=== PATIENT | male | born 1965 | race Caucasian/White ===

== ENCOUNTER → 2021-10-05 13:28 | Outpatient (BNVA) | payer OTHER, SELFPAY | PROVIDERS: Visit Provider Physician Assistant Medical | DX: M25.562 Pain in left knee (principal); M25.462 Effusion, left knee | CPT/HCPCS: 73564; 99203 ==

== ENCOUNTER → 2021-10-08 08:04 | Outpatient (BNVA) | payer OTHER, SELFPAY | PROVIDERS: Visit Provider Internal Medicine | DX: M23.92 Unspecified internal derangement of left knee (principal); M25.462 Effusion, left knee | CPT/HCPCS: 99213 ==

== ENCOUNTER → 2021-10-15 12:53 | Outpatient (BNVA) | payer OTHER, SELFPAY | PROVIDERS: Visit Provider Internal Medicine | DX: M25.462 Effusion, left knee (principal); M23.92 Unspecified internal derangement of left knee | CPT/HCPCS: 99213 ==

== ENCOUNTER 2021-11-04 06:52 | Outpatient (REF) | payer OTHER, SELFPAY ==
--- NOTE | ~2021-11-04 | XR_ITS ---
EXAMINATION: XR STANDING AP KNEES XR KNEE, LEFT CLINICAL INFORMATION: Knee pain. COMPARISON: Radiographs left knee 10/05/2021 TECHNIQUE: Standing AP view of both knees is performed along with lateral and axial patella views of the left knee. FINDINGS: Left: Normal bony mineralization. There is prominent narrowing medial knee joint compartment with marginal osteophytes and secondary genu varus. No erosive change. There is small to moderate suprapatellar effusion. Hoffa's fat pad appears normal. Axial view patella shows no lateralization or tilting. Suspect chondrocalcinosis retropatellar cartilage mid and medial side patella. Right: Normal bony mineralization. There is narrowing medial knee joint compartment with osteophytes from the femoral condyle and tibial plateau and secondary genu varus. There is no erosive change or chondrocalcinosis. 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 -Small to moderate suprapatellar effusion. -Probable chondrocalcinosis retropatellar cartilage. No erosive change. Right: -Osteoarthritis medial compartment of lesser severity. Secondary genu varus.
--- NOTE | ~2021-11-04 | XR_ITS ---
EXAMINATION: XR STANDING AP KNEES XR KNEE, LEFT CLINICAL INFORMATION: Knee pain. COMPARISON: Radiographs left knee 10/05/2021 TECHNIQUE: Standing AP view of both knees is performed along with lateral and axial patella views of the left knee. FINDINGS: Left: Normal bony mineralization. There is prominent narrowing medial knee joint compartment with marginal osteophytes and secondary genu varus. No erosive change. There is small to moderate suprapatellar effusion. Hoffa's fat pad appears normal. Axial view patella shows no lateralization or tilting. Suspect chondrocalcinosis retropatellar cartilage mid and medial side patella. Right: Normal bony mineralization. There is narrowing medial knee joint compartment with osteophytes from the femoral condyle and tibial plateau and secondary genu varus. There is no erosive change or chondrocalcinosis. 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 -Small to moderate suprapatellar effusion. -Probable chondrocalcinosis retropatellar cartilage. No erosive change. Right: -Osteoarthritis medial compartment of lesser severity. Secondary genu varus.
== END 2021-11-04 06:53 | disposition home or self-care (01) ==
LOC: HO.HOSX 06:52
PROVIDERS: Visit Provider Physician Assistant
DX: M17.12 Unilateral primary osteoarthritis, left knee (principal)
CPT/HCPCS: 20610; 73560; 73565; 99202; J1040

== ENCOUNTER 2023-03-17 08:46 | Outpatient (AMB) | payer OTHER, SELFPAY ==
--- NOTE | 2023-03-17 09:22 | AM.OFFWIN_ITS ---
Intake Vital Signs 03/17/23 09:25 Weight 212 lb BP 130/90 H Blood Pressure Location Lt brachial Position Sitting Pulse 64 Pulse Source Pulse Oximeter Pulse Oximetry (%) 97 Oxygen Delivery Method Room Air Intake Visit Reasons: EP, left side rib and knee pain due to fall Intake Note: Patient here because he had a fall yesterday and fell of his deck and hurt his left side rib and knee. Patient Tobacco Use Status: Never used Tobacco Allergies No Known Allergies Allergy (Verified 03/17/23 09:25) Do you need a note to return to daycare/school/sports/work: Yes HPI HPI Comments History of Present Illness Details This is a 57-year-old male with no stated past medical history, currently without a primary care provider, presenting for evaluation of injuries sustained in a fall at home yesterday afternoon. Patient states he was standing on his deck, had just let his two Dean dogs out onto the deck when the puppy took me out . Patient states that he fell onto his left knee and his left side. Patient states he had no pain initially in his left knee but did have pain in his left knee thereafter. Patient denies having any chest pain, cough or hemoptysis. Additionally, patient denies any pain in his left calf or left foot. [facility] Social History (Updated 11/04/21 @ 10:16 by ANGELO Infante) Patient Tobacco Use Status: Never used Tobacco Current occupational status: employed Review of Systems Const All systems reviewed & are unremarkable except as noted in HPI and below Denies fatigue and Denies fever(s) Musc Reports limited range of motion (left knee) and Reports stiffness Skin/Breast Reports wounds (left lateral knee) Neuro Reports no additional complaints Endo Denies fatigue Physical Exam Vital Signs: Last Vital Signs Pulse 64 03/17/23 09:25 BP 130/90 H 03/17/23 09:25 Pulse Ox 97 03/17/23 09:25 Oxygen Delivery Method Room Air 03/17/23 09:25 Const General: cooperative, healthy appearing, comfortable, well developed, alert and awake Nutritional Appearance: average body habitus Orientation/consciousness: patient oriented x3 Limitations: no limitations Chest Chest palpation & inspection: normal inspection of the chest, normal palpation of entire chest wall and tenderness (mild tenderness left lateral ribs; no guarding) rib Resp Effort & Inspection: normal respiratory effort and able to speak in complete sentences Auscultation: clear to auscultation bilaterally Cardio Rate: regular rate Rhythm: regular rhythm Skin Lesions: lesion noted (mild excoriation, no active bleeding no evidence or retained body L knee) Trauma: abrasion Neuro General: patient oriented x3 Extrem Left lower extremity: full ROM, no joint enlargement and knee Details: swelling (lateral), abnormal ROM (unable to completely extend @ L.knee; pain laterally), abrasion and other (pain with full extension only; no pain to palpation L. patella); no tenderness, no deformity and no unusual warmth; abnormal to inspection (mild edema/excoriation left lateral knee) Assessment & Plan Assessment & Plan (1) Contusion of knee, left: Code(s): S80.02XA - Contusion of left knee, initial encounter Plan: No imaging warranted; pt will be discharged with Naprosyn 500mg BID and RICE instructions. Medications: New naproxen (Naprosyn) 500 mg PO BID 20 tabs 0RF Coding Level of Care Code New Pt Level 3 (50627) Diagnoses Contusion of knee, left S80.02XA Time Spent (min) 20
[2023-03-17 09:25] VITALS: BP 130/90; PULSE 64; O2SAT 97
== END 2023-03-17 09:57 | disposition home or self-care (01) ==
PROVIDERS: Visit Provider Physician Assistant
DX: S80.02XA Contusion of left knee, initial encounter (principal)
CPT/HCPCS: 99203

== ENCOUNTER → 2024-04-10 09:02 | Outpatient (BNVA) | payer OTHER, SELFPAY | PROVIDERS: Visit Provider Physician Assistant Medical | DX: S46.011A Strain of muscle(s) and tendon(s) of the rotator cuff of right shoulder, initial encounter (principal); X50.3XXA Overexertion from repetitive movements, initial encounter | CPT/HCPCS: 73030; 99202 ==

== ENCOUNTER → 2024-04-24 11:07 | Outpatient (BNVA) | payer OTHER, SELFPAY | PROVIDERS: Visit Provider Physician Assistant Medical | DX: S46.011D Strain of muscle(s) and tendon(s) of the rotator cuff of right shoulder, subsequent encounter (principal); X50.3XXD Overexertion from repetitive movements, subsequent encounter | CPT/HCPCS: 99213 ==

== ENCOUNTER → 2024-05-15 11:01 | Outpatient (BNVA) | payer OTHER, SELFPAY | PROVIDERS: Visit Provider Physician Assistant Medical | DX: S46.011D Strain of muscle(s) and tendon(s) of the rotator cuff of right shoulder, subsequent encounter (principal); X50.3XXD Overexertion from repetitive movements, subsequent encounter | CPT/HCPCS: 99213 ==

== ENCOUNTER 2024-05-24 07:38 | Outpatient (REF) | payer OTHER, SELFPAY ==
--- NOTE | ~2024-05-24 | MR_ITS ---
EXAMINATION: MRI RIGHT SHOULDER WITHOUT CONTRAST CLINICAL INFORMATION: RT SHOULDER LIFTING W/ ACUTE TEARING, SEVERE PERSISTENT PAIN COMPARISON: Radiographs 04/10/2024 TECHNIQUE: MRI of the shoulder without contrast is performed on a 1.5 Charity high-field scanner. FINDINGS: ROTATOR CUFF: The supraspinatus and infraspinatus tendons are completely torn with the tendons retracted beyond the apex of the humeral head. There is high-grade undersurface partial tearing of the distal subscapularis tendon. Mild to moderate muscle atrophy and fatty infiltration. BICEPS: Biceps tendon is completely torn and retracted. CORACOACROMIAL ARCH: The undersurface of the acromion is curved with no subacromial spur. Mild acromioclavicular osteoarthritis. LABRUM/CAPSULE: Degenerative undersurface tearing of the posterior labrum GLENOHUMERAL JOINT/MARROW: Areas of cartilage thinning and surface irregularity particularly along the posterior glenoid with a small degenerative cyst and small marginal osteophytes. Small osteophytes along the greater tuberosity of the humeral head and a trace joint effusion. ADDITIONAL FINDINGS: None. MR/MR shoulder RT wo con IMPRESSION: 1. Completely torn and retracted supraspinatus and infraspinatus tendons with mild to moderate muscle atrophy and fatty infiltration. 2. High-grade undersurface partial tearing of the distal subscapularis tendon with mild to moderate muscle atrophy and fatty infiltration. 3. Completely torn and retracted biceps tendon. 4. Mild acromioclavicular and glenohumeral osteoarthritis. Degenerative undersurface partial tearing of the posterior labrum. Electronically signed by: Yannick Shane MD 05/31/2024 01:40 PM VIRGILIO ZAVALA
== END 2024-05-24 07:39 | disposition home or self-care (01) ==
LOC: HO.MRI 07:38
PROVIDERS: Visit Provider Internal Medicine
DX: M75.121 Complete rotator cuff tear or rupture of right shoulder, not specified as traumatic (principal)
CPT/HCPCS: 73221

== ENCOUNTER → 2024-05-30 11:02 | Outpatient (BNVA) | payer OTHER, SELFPAY | PROVIDERS: Visit Provider Physician Assistant Medical | DX: S46.011D Strain of muscle(s) and tendon(s) of the rotator cuff of right shoulder, subsequent encounter (principal); X50.3XXD Overexertion from repetitive movements, subsequent encounter | CPT/HCPCS: 99213 ==

== ENCOUNTER → 2024-06-20 09:00 | Outpatient (BNVA) | payer OTHER, SELFPAY | PROVIDERS: Visit Provider Physician Assistant | DX: M75.101 Unspecified rotator cuff tear or rupture of right shoulder, not specified as traumatic (principal) | CPT/HCPCS: 99213 ==